=== PATIENT | female | born 1965 | race Caucasian/White ===

== ENCOUNTER → 2020-02-22 15:57 | Outpatient (CLI) | payer BC, SELFPAY ==
[2020-02-27 10:35] LABS: Covid-19 Nasal PCR Sendout Lex NOT DETECTED
== END ==
PROVIDERS: PCP Family Medicine; Visit Provider Nurse Practitioner Family
DX: Z03.818 Encounter for observation for suspected exposure to other biological agents ruled out (principal)
CPT/HCPCS: U0004

== ENCOUNTER 2021-01-02 09:44 | Emergency (ER) | payer BC, SELFPAY ==
[2021-01-02 09:53] VITALS: BP 154/83; PULSE 117; RESP 16; O2SAT 95; BMI 48.9
--- NOTE | 2021-01-02 10:14 | HMH.EDUTC ---
[facility] [place] Impression: Sinusitis Qualifiers: Sinusitis location: unspecified location Chronicity: unspecified Qualified Code(s): J32.9 - Chronic sinusitis, unspecified Disposition: Home, Self-Care Condition on Discharge: Good Instructions: Sinusitis, DI for Sinusitis Additional Instructions: *Monitor Temp, Over the counter Motrin or Tylenol as directed/as needed Tylenol every 4 hours and Motrin every 6 hours (as long as your family doctor has told you that you can take it) for fever or pain. and straight to ER if unable to lower temp less than 101.0 after medication given *Warm salt water gargles may help to soothe the throat *Throat Lozenges *Warm fluids like tea with honey may help to soothe the throat *Sleep elevated *Humidifier/Vaporizer *Flonase 2 sprays in each nostril daily but be aware that it may take 2-3 days before you notice improvement Follow up IMMEDIATELY for new or worsening symptoms or no Noticeable improvement over the next 48-72 hours. 911 for difficulty breathing or swallowing You were tested for today for COVID19 your test result should be back in the next 24-48 hours, you may call to the [facility] to see if your test results are back in the next 48 hours [phone] [facility] hours are 9am-9pm You was given a handout with instructions for Self Quarantine and Self isolation for while you wait on test results and what to do if they are positive If you are positive the Health Dept will be contacting you also Prescriptions: Doxycycline Monohydrate [Doxycycline [place] 100mg Tab] 100 mg PO Q12 7 Days #14 tab Transmission Status: Received by [id number] Benzonatate [Tessalon [place] 100mg Cap*] 100 mg PO TID PRN #15 cap PRN Reason: Cough Transmission Status: Received by [id number] Referrals: Daniel Shepard [Primary Care Provider] - As needed Time of Disposition: 10:37 Medical Decision Making - Rajeev Inquiry Pt receiving controlled substance: No Rajeev was queried for this patient: No Vital Signs: 01/02/21 09:53 01/02/21 10:38 Temperature 98.6 F Pulse Rate 109 H Pulse Rate [Left] 117 H Respiratory Rate 16 20 Blood Pressure 157/89 H Blood Pressure [Right Arm] 154/83 H Blood Pressure Mean [Right Arm] 106 02 Sat by Pulse Oximetry 95 - Lab Data Lab Results 01/02/21 10:05: Chlamy pneumoniae PCR Not detected, Adenovirus (PCR) Not detected, B. pertussis DNA (PCR) Not detected, Coronavirus OC43 (PCR) Detected A, Coronavirus HKU1 (PCR) Not detected, Coronavirus 229E (PCR) Not detected, SARS-CoV-2 (PCR) Not detected, Coronavirus NL63 (PCR) Not detected, Human Metapneumovir PCR Not detected, Influenza A (H1) PCR Not detected, Influ A (H1N1/09) PCR Not detected, Influenza A (H3) PCR Not detected, Influenza Type A (PCR) Not detected, Influenza Type B (PCR) Not detected, M. pneumoniae (PCR) Not detected, Parainfluenza 1 (PCR) Not detected, Parainfluenza 2 (PCR) Not detected, Parainfluenza 3 (PCR) Not detected, Parainfluenza 4 (PCR) Not detected, RSV (PCR) Not detected, Entero/Rhino (PCR) Not detected Orders (Tests/Meds): ED MEDICATIONS Discontinued Medications Generic Name Dose Route Start Last Admin Trade Name Freq PRN Reason Stop Dose Admin Ceftriaxone Sodium 1 gm 01/02/21 10:25 01/02/21 10:32 Ceftriaxone 1gm Vial IM 01/02/21 10:26 1 gm ONCE ONE Administration Protocol Lidocaine HCl 0 ml 01/02/21 10:25 01/02/21 10:32 Lidocaine 1% 5ml Pf Vial IM 01/02/21 10:26 2.5 ml ONCE ONE Administration Methylprednisolone Sodium Succinate 125 mg 01/02/21 10:25 01/02/21 10:32 Methylprednisolone Sod Succ 125mg Vial IM 01/02/21 10:26 125 mg ONCE ONE Administration Medical Decision Narrative: Discusses CXR and patient advised just had one last week and declined it [facility] [place] - General Stated complaint: congestion,cough,FIGUEROA,sorethroat Time Seen by Provider: 01/02/21 10:14 Mode of Arrival: Ambulatory Source of [employer]
[2021-01-02 10:18] LABS: Adenovirus,PCR Not Detected (NotDetected); Bordetella Pertussis Not Detected (NotDetected); Chlamydophila Pneumoniae, PCR Not Detected (NotDetected); Coronavirus 19, PCR Not Detected (NotDetected); Coronavirus 229E Not Detected (NotDetected); Coronavirus NL63 Not Detected (NotDetected); Coronovirus HKU1,PCR Not Detected (NotDetected); Human Metapneumovirus Not Detected (NotDetected); Influenza A, PCR Not Detected (NotDetected); Influenza AH1, 2009 Not Detected (NotDetected); Influenza AH1, PCR Not Detected (NotDetected); Influenza AH3,PCR Not Detected (NotDetected); Influenza B, PCR Not Detected (NotDetected); Mycoplasma Pneumoniae, PCR Not Detected (NotDetected); Parainfluenza 1, PCR Not Detected (NotDetected); Parainfluenza 2, PCR Not Detected (NotDetected); Parainfluenza 3, PCR Not Detected (NotDetected); Parainfluenza 4, PCR Not Detected (NotDetected); Respiratory Syncytial Virus Not Detected (NotDetected); Rhinovirus/Enterovirus Not Detected (NotDetected)
[2021-01-02 10:38] VITALS: BP 157/89; PULSE 109; RESP 20; TEMP 37
[2021-01-02 11:37] LABS: Coronavirus OC43 Detected (NotDetected)
== END 2021-01-02 10:48 | disposition home or self-care (01) ==
PROVIDERS: Emergency Provider Nurse Practitioner; PCP Family Medicine
DX: J32.9 Chronic sinusitis, unspecified (principal); B34.2 Coronavirus infection, unspecified; I10 Essential (primary) hypertension; E78.5 Hyperlipidemia, unspecified; F17.210 Nicotine dependence, cigarettes, uncomplicated
CPT/HCPCS: 87581; 87633; 87798; 96372; 99202; G0463

== ENCOUNTER → 2021-05-07 15:05 | Outpatient (CLI) | payer BC, SELFPAY | PROVIDERS: PCP Family Medicine; Visit Provider Nurse Practitioner | DX: Z20.822 Contact with and (suspected) exposure to COVID-19 (principal) | CPT/HCPCS: C9803; U0003; U0005 ==

== ENCOUNTER 2022-10-09 12:10 | Emergency (ER) | payer BC, SELFPAY ==
[2022-10-09 12:17] VITALS: BP 153/87; PULSE 98; RESP 20; TEMP 36.6; O2SAT 100; BMI 46.9
--- NOTE | 2022-10-09 12:37 | EXP.UTC ---
Discharge Plan Disposition Patient Disposition: Home, Self-Care Condition: Good Prescriptions Prescriptions: New methocarbamol 500 mg tablet 500 mg PO TID PRN (Reason: muscle spasm) Qty: 20 0RF No Action lisinopril-hydrochlorothiazide 20-25 mg tablet PO Qty: 90 atorvastatin 20 mg tablet PO Qty: 90 omeprazole 20 mg capsule,delayed release(DR/EC) PO Qty: 90 prednisone 20 mg tablet 20 mg PO BID 5 Days Qty: 10 0RF Rx Instructions: administer with food or milk benzonatate 200 mg capsule 200 mg PO TID PRN (Reason: cough) 7 Days Qty: 21 0RF albuterol sulfate 90 mcg/actuation HFA aerosol inhaler 2 puff INHALATION Q6H PRN (Reason: bronchitis) 7 Days Qty: 6.7 0RF Rx Instructions: administer with spacer doxycycline monohydrate 100 MG tablet 100 mg PO Q12 7 Days Qty: 14 0RF benzonatate 100 MG capsule 100 mg PO TID PRN (Reason: Cough) Qty: 15 0RF Referrals Follow up/Referrals: Provider,Referral, MD [Primary Care Provider] - See instructions Activity Restrictions/Add. Instructions Additional Instructions/Restrictions: *Ibuprofen elias 6 hours with meal as needed for pain/inflammation *Not additional anti-inflammatory like motrin, aleve, advil with the above amount of ibuprofen. You can still take Tylenol every 4 hours as needed if you need something else for pain *Ice 20 minutes every 2 hours for the first 48 hours after the initial injury followed by moist heat every 20 minutes 3-4 times a day to affected area *Muscle relaxer every 8 hours as needed for muscle spasms but remember, it WILL cause drowsiness You cannot take it and drive, operate machinery or care for small children. *Keep this area active, no movement leads to more stiffness, However take it easy and avoid heavy lifting pushing or pulling *Follow up with you family doctor if no improvement for further treatment on Thursday Clinical Impressions Clinical Impression: Muscle spasm Instructions Patient Instructions: Low Back Pain, DI for Muscle Spasm Discharge ED Provider: Vandana Cramer [facility] HPI General Stated complaint: Back pain no known accident Mode of Arrival: Ambulatory Source of Information: Patient Limitations: No Limitations Time Seen by Provider: 10/09/22 12:37 Description of Symptoms (Recalled from Triage Doc. by RN): pt c/o L mid to lower back pain with spasming. ongoing x2 wks. pt fell a few days ago aggravating it. HEENT Symptoms (Recalled from RN notes): No Resp Symptoms (Recalled from RN notes): No Skin Symptoms (Recalled from RN notes): No MS Symptoms (Recalled from RN notes): Yes Functional Status (Recalled from RN notes): wnl History of Present Illness Provider Complaint: Patient states that she feels like she pulled something in her left lower back about 2 weeks ago States that she had a cough that has been aggrivating it and she fell a few days ago making it worse States that she feels like she has a spasm that is like a knot in her left lower back area Denies loss of control of bowel or bladder Related Data Home Medications Medication Instructions Recorded Confirmed atorvastatin 20 mg tablet PO #90 tabs 03/18/19 12/11/20 lisinopril 20 PO #90 tabs 03/18/19 12/11/20 mg-hydrochlorothiazide 25 mg tablet omeprazole 20 mg capsule,delayed PO #90 caps 03/18/19 12/11/20 release Previous Rx's Medication Instructions Recorded albuterol sulfate 90 mcg/actuation 2 puff inhalation Q6H PRN 12/11/20 aerosol inhaler bronchitis 7 days #6.7 grams benzonatate 200 mg capsule 200 mg PO TID PRN cough 7 days #21 12/11/20 caps prednisone 20 mg tablet 20 mg PO BID brochitis 5 days #10 12/11/20 tabs benzonatate 100 mg capsule 100 mg PO TID PRN Cough #15 caps 01/02/21 doxycycline monohydrate 100 mg 100 mg PO Q12 7 days #14 tabs 01/02/21 tablet methocarbamol 500 mg tablet 500 mg PO TID PRN muscle spasm #20 10/09/22 tabs Allergies Allergy/AdvReac Type Severity Reac
[2022-10-09 12:48] VITALS: BP 153/87; PULSE 98; RESP 20; TEMP 36.6
== END 2022-10-09 12:50 | disposition home or self-care (01) ==
PROVIDERS: Emergency Provider Nurse Practitioner
DX: M54.50 Low back pain, unspecified (principal); M62.838 Other muscle spasm; F17.200 Nicotine dependence, unspecified, uncomplicated
CPT/HCPCS: 99212; 99214; G0463

== ENCOUNTER 2023-01-21 04:39 | Emergency (ER) | payer BC, SELFPAY ==
[2023-01-21 04:41] VITALS: BP 177/104; PULSE 88; RESP 24; TEMP 36.6; O2SAT 97; BMI 47.8
[2023-01-21 05:22] LABS: Basophils # 0.1 K/mm3 (0-0.2); Basophils % 1.1 % (0.1-2.0); Eosinophils # 0.5 K/mm3 (0.0-0.4); Eosinophils % 6.2 % (0.1-12.0); Hematocrit 47.7 % (37.0-47.0); Hemoglobin 14.9 g/dL (12.2-16.2); Lymphocytes # 2.9 K/mm3 (0.7-4.5); Lymphocytes % 33.2 % (10-50); Mean Corpuscular HGB Conc 31.4 g/dL (31.8-35.4); Mean Corpuscular Hemoglobin 29.1 pg (27.0-31.2); Mean Corpuscular Volume 92.9 fl (81-99); Mean Platelet Volume 7.7 fl (7.4-10.4); Monocytes # 0.4 K/mm3 (0.1-1.0); Monocytes % 4.9 % (1.7-9.3); Neutrophils # 4.7 K/mm3 (1.8-7.8); Neutrophils % 54.6 % (37.0-80.0); Platelet Count 497 K/mm3 (142-424); Red Blood Count 5.13 M/mm3 (4.20-5.40); Red Cell Distribution Width 13.8 % (11.5-17.5); White Blood Count 8.6 K/mm3 (4.8-10.8)
--- NOTE | 2023-01-21 05:22 | HMH.EDGENADL ---
Discharge Plan Disposition Patient Disposition: Home, Self-Care Prescriptions Prescriptions: New lidocaine 5 % adhesive patch,medicated 1 patch topical Q24H Qty: 15 0RF Rx Instructions: leave on most painful area for up to 12 hrs methocarbamol 750 mg tablet 1,500 mg PO TID Qty: 90 0RF No Action lisinopril-hydrochlorothiazide 20-25 mg tablet PO Qty: 90 atorvastatin 20 mg tablet PO Qty: 90 omeprazole 20 mg capsule,delayed release(DR/EC) PO Qty: 90 prednisone 20 mg tablet 20 mg PO BID 5 Days Qty: 10 0RF Rx Instructions: administer with food or milk benzonatate 200 mg capsule 200 mg PO TID PRN (Reason: cough) 7 Days Qty: 21 0RF albuterol sulfate 90 mcg/actuation HFA aerosol inhaler 2 puff INHALATION Q6H PRN (Reason: bronchitis) 7 Days Qty: 6.7 0RF Rx Instructions: administer with spacer doxycycline monohydrate 100 MG tablet 100 mg PO Q12 7 Days Qty: 14 0RF benzonatate 100 MG capsule 100 mg PO TID PRN (Reason: Cough) Qty: 15 0RF methocarbamol 500 mg tablet 500 mg PO TID PRN (Reason: muscle spasm) Qty: 20 0RF Referrals Follow up/Referrals: Ronni Rod, PT [Physical Therapist] - See instructions Dainel Shepard [Primary Care Provider] - See instructions Activity Restrictions/Add. Instructions Additional Instructions/Restrictions: Call your family doctor to establish care for this visit to the emergency department and schedule follow-up within 48 hours to ensure improvement. If you have any worsening of your condition or any other concerning signs or symptoms, return to the emergency department or your primary care doctor for further evaluation. Take Tylenol 1000 mg every 6 hours (4 times daily) and ibuprofen 400 mg every 6 hours (4 times daily) as needed with food and water to prevent GI upset and kidney damage. Robaxin as prescribed Clinical Impressions Clinical Impression: Muscle spasm Instructions Patient Instructions: DI for Low Back Pain Discharge ED Provider: Rolan So General Adult [facility] General Chief complaint: Back Pain/Injury Stated complaint: Severe back pain Time Seen by Provider: 01/21/23 04:40 Mode of Arrival: Wheelchair Source of Information: Patient Limitations: No Limitations Description of Symptoms (Recalled from ER Triage Doc. by RN): Pt assisted into wheelchair from car into lobby. States she woke up with severe back spasm in her left thoracic/flank area which is non radiating. Pt denies any shooting pain into legs, numbness, loss of bladder or bowels. No hx of kidney stone, has been given Baclofen for muscle spasms. History of Present Illness HPI narrative: This is a 57-year-old female with history of hypertension, hyperlipidemia, smoking, chronic back spasms presenting with back spasm. Patient states that she has had back pain over the past 3 to 4 months which has been worsening. Had a appointment scheduled with her primary care doctor after going to the urgent care and receiving baclofen, which only intermittently helps. On 01/20 in the late evening, patient rolled over in bed and I do not know what the hell happened, but I felt like I was dying. She had an immediate onset severe pain in her left flank that did not radiate, associated with feeling of tightness and ripping. Denies heavy lifting, trauma, bowel or bladder dysfunction, saddle anesthesia, lower extremity deficits, dysuria, hematuria, abdominal pain, chest pain, shortness of breath, neurologic deficits, or any other concerns. Related Data Home Medications Medication Instructions Recorded Confirmed atorvastatin 20 mg tablet PO #90 tabs 03/18/19 12/11/20 lisinopril 20 PO #90 tabs 03/18/19 12/11/20 mg-hydrochlorothiazide 25 mg tablet omeprazole 20 mg capsule,delayed PO #90 caps 03/18/19 12/11/20 release Previous Rx's Medication Instructions Recorded albuterol sulfate 90 mcg/actuation 2 puff inhalation Q6H PRN
[2023-01-21 05:32] LABS: Chloride 94 mmol/L (98-107); Potassium 4.3 mmoL/L (3.5-5.1); Sodium 133 mmol/L (136-145)
[2023-01-21 05:34] LABS: Alanine Aminotransferase 35 U/L (12-78); Aspartate Amino Transferase 35 U/L (14-36); Blood Urea Nitrogen 13 mg/dl (7-17); Creatinine Clearance Estimated 65 mL/min (50-200); Estimated Glomerular Filt Rate 74 ml/min (>60); GFR (African American) 90 ML/MIN (>60)
[2023-01-21 05:35] LABS: Albumin Level 4.2 g/dl (3.5-5.0); Albumin/Globulin Ratio 1.2 (1.1-1.8); Alkaline Phosphatase 145 U/L (38-126); Anion Gap 13.3 mEq/L (5-15); Bilirubin,Total 0.6 mg/dl (0.2-1.3); Calcium 10.4 mg/dl (8.4-10.2); Carbon Dioxide 30 mmol/L (22.0-30.0); Globulin 3.6 g/dL (1.3-3.2); Glucose 102 mg/dl (74-100); Lipase 162 U/L (23-300); Total Protein,Serum 7.8 g/dl (6.3-8.2)
[2023-01-21 06:14] LABS: Microscopic, Urine URINE MICROSCOPIC (MICROSCOPIC)
[2023-01-21 06:20] LABS: Appearance,Urine CLEAR (Clear); Bilirubin,Urine Negative (Negative); Blood, Urine Negative (Negative); Color,Urine YELLOW (Yellow); Glucose,Urine (UA) Negative (Negative); Ketones,Urine Negative (Negative); Leukocyte Esterase,Urine Negative (Negative); Nitrate,Urine Negative (Negative); Protein,Urine Negative (Negative); Specific Gravity, Urine 1.015 (1.005-1.030); Urobilinogen,Urine 0.2 EU/dl (0.2)
[2023-01-21 06:43] LABS: Amorphous Sediment,Urine 1+ /lpf; Bacteria,Urine Trace /lpf
[2023-01-21 06:47] VITALS: BP 145/90
[2023-01-21 07:25] VITALS: BP 145/90; PULSE 88; RESP 19; TEMP 36.6
== END 2023-01-21 07:28 | disposition home or self-care (01) ==
PROVIDERS: Emergency Provider Emergency Medicine; PCP Family Medicine
DX: M54.6 Pain in thoracic spine (principal); R25.2 Cramp and spasm; F17.200 Nicotine dependence, unspecified, uncomplicated
CPT/HCPCS: 80053; 81001; 83690; 85025; 96361; 96374; 96375; 99285

== ENCOUNTER 2023-04-08 15:00 | Outpatient (RCR) | payer BC, SELFPAY | END 2023-04-08 16:00 | disposition home or self-care (01) | LOC: PT 15:00 | PROVIDERS: PCP Family Medicine; Visit Provider Family Medicine | DX: M54.6 Pain in thoracic spine (principal); M62.830 Muscle spasm of back | CPT/HCPCS: 97010; 97012; 97014; 97035; 97110; 97140; 97163; 97164; G0283 ==